=== PATIENT | male | born 1995 ===

== ENCOUNTER 2017-06-03 00:47 | Emergency (ER) | payer SELFPAY ==
[2017-06-03 01:51] VITALS: BP 119/65; PULSE 67; RESP 16; TEMP 98.1; O2SAT 100
--- NOTE | 2017-06-03 02:45 | ED PDOC ---
HPI: CCC, URI, Sore Throat Time Seen by Provider: 06/03/17 02:18 Chief Complaint (Nursing): ENT Problem Chief Complaint (Provider): cough History Per: Patient History/Exam Limitations: no limitations Have you had recent travel within the past 21 days to any of the following countries: [place], [place], [place] or [place]?: No Onset/Duration Of Symptoms: Days (2) Current Symptoms Are (Timing): Still Present Location Of Pain: Throat Associated Symptoms: Sore Throat, Cough, Sputum, Sinus Drainage. denies: Fever , Chills, Neck Pain, Myalgias, Nasal Congestion, Nausea, Vomiting, Diarrhea Past Medical History Reviewed: Historical Data, Nursing Documentation, Vital Signs Vital Signs: Last Vital Signs Temp 98.1 F 06/03/17 01:49 Pulse 67 06/03/17 01:49 Resp 16 06/03/17 01:49 BP 119/65 06/03/17 01:49 Pulse Ox 100 06/03/17 01:49 - Medical History PMH: No Chronic Diseases - Family History Family History: States: No Known Family Hx - Home Medications Home Medications: Ambulatory Orders Medication Instructions Recorded Azithromycin [Zithromax] 250 mg PO DAILY #6 tab 06/03/17 Dextromethorphan Polistirex 30 mg PO BID #100 new.er.12h 06/03/17 [Delsym] - Allergies Allergies/Adverse Reactions: Allergies Allergy/AdvReac Type Severity Reaction Status Date / Time No Known Allergies Allergy Verified 06/03/17 01:50 Review of Systems ROS Statement: Except As Marked, All Systems Reviewed And Found Negative Respiratory: Positive for: Cough Physical Exam - Reviewed Nursing Documentation Reviewed: Yes Vital Signs Reviewed: Yes - Physical Exam Appears: Positive for: Well, Non-toxic, No Acute Distress Skin: Positive for: Normal Color, Warm, DRY Cardiovascular/Chest: Positive for: Regular Rate, Rhythm Respiratory: Positive for: Wheezing (mild) Extremity: Positive for: Normal ROM Neurologic/Psych: Positive for: Alert, Oriented - ECG O2 Sat by Pulse Oximetry: 100 - Radiology X-Ray: Interpreted by Fl X-Ray Interpretation: No Acute Disease Medical Decision Making Medical Decision Making: pt will be given z-pack and dextromethphan and f.u with pmd. Disposition - Clinical Impression Clinical Impression: Upper respiratory infection - Patient ED Disposition Is Patient to be Admitted: No Counseled Patient/Family Regarding: Studies Performed, Diagnosis, Need For Followup, Rx Given - Disposition Referrals: [facility] [Outside] Disposition: Routine/Home Disposition Time: 02:53 Condition: STABLE Prescriptions: Azithromycin [Zithromax] 250 mg PO DAILY #6 tab Dextromethorphan Polistirex [Delsym] 30 mg PO BID #100 new.er.12h Forms: [facility] (Mosotho) Print Language: SRI LANKAN
--- NOTE | 2017-06-03 08:38 | RAD ---
HISTORY: Cough. COMPARISON: No prior. TECHNIQUE: Chest PA and lateral FINDINGS: LUNGS: No active pulmonary disease. PLEURA: No significant pleural effusion identified. No pneumothorax apparent. CARDIOVASCULAR: Normal. OSSEOUS STRUCTURES: No significant abnormalities. VISUALIZED UPPER ABDOMEN: Normal. OTHER FINDINGS: None. IMPRESSION: No active disease. No preliminary report provided by emergency department personnel.
== END 2017-06-03 03:11 | disposition home or self-care (01) ==
LOC: H.ER 00:47
DX: J06.9 Acute upper respiratory infection, unspecified (principal)